=== PATIENT | female | born 1985 | race Caucasian/White ===

== ENCOUNTER 2024-03-07 10:01 | Outpatient (CLI) | payer OTHER, SELFPAY | END 2024-03-07 10:02 | disposition home or self-care (01) | LOC: LKVREF 10:11 | PROVIDERS: PCP Family Medicine; Visit Provider Family Medicine | DX: I10 Essential (primary) hypertension (principal); E66.9 Obesity, unspecified; Q61.5 Medullary cystic kidney | CPT/HCPCS: 80053 ==

== ENCOUNTER 2024-04-13 09:31 | Outpatient (CLI) | payer OTHER, SELFPAY | END 2024-04-13 09:32 | disposition home or self-care (01) | LOC: LKVREF 09:33 | PROVIDERS: PCP Family Medicine; Visit Provider Family Medicine | DX: I10 Essential (primary) hypertension (principal); E11.9 Type 2 diabetes mellitus without complications | CPT/HCPCS: 80048; 82043; 82570 ==

== ENCOUNTER 2025-01-09 11:48 | Outpatient (CLI) | payer OTHER, SELFPAY | END 2025-01-09 11:49 | disposition home or self-care (01) | LOC: LKVREF 11:49 | PROVIDERS: PCP Family Medicine; Visit Provider Family Medicine | DX: I10 Essential (primary) hypertension (principal); Z79.899 Other long term (current) drug therapy | CPT/HCPCS: 80048 ==